=== PATIENT | male | born 2000 | race American Indian/Alaskan Native ===

== ENCOUNTER 2019-10-20 15:01 | Emergency (ER) | payer OTHER ==
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
[2019-10-20] MEDS ORDERED: IBUPROFEN 800 MG TAB PO ONE (16:40)
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
[2019-10-20 18:31] VITALS: BP 120/64
== END 2019-10-20 18:14 | disposition home or self-care (01) ==
LOC: ED 15:01
DX: S16.1XXA Strain of muscle, fascia and tendon at neck level, initial encounter (principal); J45.909 Unspecified asthma, uncomplicated; V89.2XXA Person injured in unspecified motor-vehicle accident, traffic, initial encounter; Y93.89 Activity, other specified; Y92.410 Unspecified street and highway as the place of occurrence of the external cause; Y99.8 Other external cause status
CPT/HCPCS: 72040